=== PATIENT | male | born 1950 | race Caucasian/White ===

== ENCOUNTER 2018-09-09 19:17 | Emergency (ER) | payer MEDICARE, MEDICAID ==
[2018-09-09] MEDS ORDERED: Morphine 4 MG/ML Syringe IVPUSH PRN (19:34)
[2018-09-09] MEDS ORDERED: Nitroglycerin 0.4 MG Tab.SL SL PRN (19:34)
[2018-09-09] MEDS ORDERED: Sodium Chloride 0.9% 10 ML Syringe FLUSH PRN (19:34)
[2018-09-09] MEDS ORDERED: Aspirin 81 MG Tab.Chew PO ONE (19:34)
--- NOTE | 2018-09-09 19:38 | EDM.PDOC ---
ED HPI GENERAL MEDICAL PROBLEM - General Stated Complaint: CHEST PAIN Time Seen by Provider: 09/09/18 19:22 Source of Information: Reports: Patient, Family, Old Records, RN Notes Reviewed History Limitations: Reports: No Limitations - History of Present Illness INITIAL COMMENTS - FREE TEXT/NARRATIVE: 68-year-old gentleman presents to emergency department today complaint of chest pain, he states it started this morning but has progressively gotten worse throughout the day rates the pain 5 out of 10 however it does get worse when he exerts himself then he gets relief with rest. Denies shortness of breath has had nausea and vomiting and gets sweaty palms with exacerbation of pain, history of CABG 2 vessel Chest Pain Score (Numeric/FACES): 2 - Related Data Allergies Allergy/AdvReac Type Severity Reaction Status Date / Time [id number]-Gte Reductase Allergy Cannot Verified 09/09/18 19:37 Inhibitor Remember Home Meds: Home Meds Clopidogrel [Plavix] 75 mg PO DAILY 05/10/15 [History] Levothyroxine [Synthroid] 50 mcg PO ACBREAKFAST 09/08/15 [History] Nicotine [Habitrol] 21 mg TRDERM DAILY #30 patch 09/22/15 [Rx] Tamsulosin [Flomax] 0.4 mg PO PCBREAKFAST #30 cap.er 09/22/15 [Rx] *Semaglutide 0.5 mg SQ WEEKLY 09/09/18 [History] Furosemide 40 mg PO DAILY 09/09/18 [History] Gabapentin [Neurontin] 300 mg PO BID 09/09/18 [History] Lisinopril 5 mg PO DAILY 09/09/18 [History] Melatonin 9 mg PO BEDTIME 09/09/18 [History] Metoprolol Succinate [Toprol XL 50mg] 50 mg PO DAILY 09/09/18 [History] Nicotine Polacrilex [Nicotine Gum] 2 mg PO ASDIRECTED 09/09/18 [History] traZODone HCl [Trazodone HCl] 50 mg PO BEDTIME 09/09/18 [History] Past Medical History HEENT History: Reports: Allergic Rhinitis, Sinusitis, Other (See Below) Other HEENT History: l nasal airway mass. Cardiovascular History: Reports: Bypass, CAD, High Cholesterol, Hypertension, SOB on Exertion Respiratory History: Reports: COPD, Pneumonia, Recurrent, SOB Other Respiratory History: Pneumonia Gastrointestinal History: Reports: Cholelithiasis, Diverticulosis, GERD Musculoskeletal History: Reports: Back Pain, Chronic, Other (See Below) Other Musculoskeletal History: Back pain/Injury Psychiatric History: Reports: Addiction, Depression, Other (See Below) Other Psychiatric History: RECOVERING ALCOHOLIC Endocrine/Metabolic History: Reports: Hyperthyroidism Hematologic History: Reports: Anemia, Folic Acid, Iron Deficiency Dermatologic History: Reports: Other (See Below) Other Dermatologic History: precancerous areas on skin - Infectious Disease History Infectious Disease History: Reports: Chicken Pox - Past Surgical History Cardiovascular Surgical History: Reports: Coronary Artery Bypass GI Surgical History: Reports: Colonoscopy, Other (See Below) Social & Family History - Family History Family Medical History: Unobtainable Endocrine/Metabolic: Reports: Diabetes, type II - Living Situation & Occupation Living situation: Reports: Occupation: Disabled ED ROS GENERAL - Review of Systems Review Of Systems: See Below Constitutional: Reports: Diaphoresis HEENT: Reports: No Symptoms Respiratory: Reports: Shortness of Breath. Denies: Cough, Sputum Cardiovascular: Reports: Chest Pain, Dyspnea on Exertion. Denies: Edema GI/Abdominal: Reports: Nausea, Vomiting : Reports: No Symptoms Musculoskeletal: Reports: No Symptoms Skin: Reports: No Symptoms Neurological: Reports: No Symptoms ED EXAM, GENERAL - Physical Exam Exam: See Below Exam Limited By: No Limitations General Appearance: Alert, WD/WN, No Apparent Distress Head: Atraumatic, Normocephalic Neck: Normal Inspection, Supple, Non-Tender, Full Range of Motion Respiratory/Chest: No Respiratory Distress, Lungs Clear, Normal Breath Sounds, No Accessory Muscle Use, Other (Chest is tender to palpation over the left breast) Cardiovascular: Regular Rate, Rhythm, No Murmur GI/Abdominal: Soft, Non-Tender Extremities: Normal Inspection, No Pedal Edema. No: Pedal Edema Course - Vital Signs Last Recorded V/S: Last Vital Signs Temp 97.3 F 09/09/18 19:58 Pulse 61 09/09/18 21:30 Resp 20 09/09/18 21:30 BP 118/60 09/09/18 21:30 Pulse Ox 92 L 09/09/18 21:30 - Orders/Labs/Meds Orders: Active Orders 24 hr Category Date Time Status Cardiac Monitoring [RC] .As Directed Care 09/09/18 19:35 Active EKG Documentation Completion [RC] ASDIRECTED Care 09/09/18 19:35 Active Peripheral IV Care [RC] . DIRECTED Care 09/09/18 19:35 Active Morphine Med 09/09/18 19:34 Active 4 mg IVPUSH Q10M PRN Nitroglycerin [Nitrostat] Med 09/09/18 19:34 Active 0.4 mg SL Q5M PRN Sodium Chloride 0.9% [Saline Flush] Med 09/09/18 19:34 Active 10 ml FLUSH ASDIRECTED PRN Peripheral IV Insertion Adult [OM.PC] Stat Oth 09/09/18 19:34 Ordered Saline Lock Insert [OM.PC] Stat Oth 09/09/18 19:34 Ordered EKG 12 Lead [EK] Stat Ther 09/09/18 19:35 Ordered Medication Orders Morphine Sulfate (Morphine) 4 mg IVPUSH Q10M PRN PRN Reason: Chest Pain Stop: 09/10/18 19:35 Last Admin: 09/09/18 19:43 Dose: 4 mg Nitroglycerin (Nitrostat) 0.4 mg SL Q5M PRN PRN Reason: Chest Pain Stop: 09/10/18 19:35 Sodium Chloride (Saline Flush) 10 ml FLUSH ASDIRECTED PRN PRN Reason: Keep Vein Open Last Admin: 09/09/18 19:46 Dose: 10 ml Labs: Laboratory Tests 09/09/18 09/09/18 09/09/18 Range/Units 19:47 19:47 21:30 WBC 7.1 (4.5-11.0) K/uL RBC 4.70 (4.30-5.90) M/uL Hgb 13.0 D (12.0-15.0) g/dL Hct 41.3 (40.0-54.0) % MCV 88 (80-98) fL MCH 28 (27-31) pg MCHC 32 (32-36) % Plt Count 216 (150-400) K/uL Neut % (Auto) 67 H (36-66) % Lymph % (Auto) 18 L (24-44) % [place] % (Auto) 12 H (2-6) % Eos % (Auto) 3 (2-4) % Baso % (Auto) 0 (0-1) % Sodium 138 L (140-148) mmol/L Potassium 4.7 (3.6-5.2) mmol/L Chloride 102 (100-108) mmol/L Carbon Dioxide 31 (21-32) mmol/L Anion Gap 9.7 (5.0-14.0) mmol/L BUN 38 H D (7-18) mg/dL Creatinine 2.0 H D (0.8-1.3) mg/dL Est Cr Clr Drug Dosing 33.97 mL/min Estimated GFR (MDRD) 34 L (>60) Glucose 163 H (74-106) mg/dL Calcium 9.0 (8.5-10.1) mg/dL Total Bilirubin 0.3 D (0.2-1.0) mg/dL AST 13 L (15-37) U/L ALT 30 D (12-78) U/L Alkaline Phosphatase 77 (46-116) U/L Troponin I < 0.017 < 0.017 (0.000-0.056) ng/mL Total Protein 7.6 (6.4-8.2) g/dL Albumin 4.0 (3.4-5.0) g/dL Globulin 3.6 H (2.3-3.5) g/dL Albumin/Globulin Ratio 1.1 L (1.2-2.2) Meds: Medications Generic Name Dose Route Start Last Admin Trade Name Freq PRN Reason Stop Dose Admin Morphine Sulfate 4 mg 09/09/18 19:34 09/09/18 19:43 Morphine IVPUSH 09/10/18 19:35 4 mg Q10M PRN Administration Chest Pain Nitroglycerin 0.4 mg 09/09/18 19:34 Nitrostat SL 09/10/18 19:35 Q5M PRN Chest Pain Sodium Chloride 10 ml 09/09/18 19:34 09/09/18 19:46 Saline Flush FLUSH 10 ml ASDIRECTED PRN Administration Keep Vein Open Discontinued Medications Generic Name Dose Route Start Last Admin Trade Name Freq PRN Reason Stop Dose Admin Aspirin 324 mg 09/09/18 19:34 09/09/18 19:43 Aspirin PO 09/09/18 19:35 324 mg ONETIME ONE Administration Departure - Departure Time of Disposition: 22:33 Disposition: Home, Self-Care 01 Condition: Fair Clinical Impression: Chest wall pain Instructions: Chest Wall Pain, [id number] Referrals: Vijay Sunshine MD [Primary Care Provider] - Additional Instructions: Resume your regular medications Please followup with your primary care provider in 3-5 days if not better, please call return to the emergency department with worsening of symptoms., - My Orders Last 24 Hours: My Active Orders 09/09/18 19:34 Morphine 4 mg IVPUSH Q10M PRN Nitroglycerin [Nitrostat] 0.4 mg SL Q5M PRN Sodium Chloride 0.9% [Saline Flush] 10 ml FLUSH ASDIRECTED PRN Peripheral IV Insertion Adult [OM.PC] Stat Saline Lock Insert [OM.PC] Stat 09/09/18 19:35 Cardiac Monitoring [RC] .As Directed EKG Documentation Completion [RC] ASDIRECTED Peripheral IV Care [RC] . DIRECTED EKG 12 Lead [EK] Stat - Assessment/Plan Last 24 Hours: My Active Orders 09/09/18 19:34 Morphine 4 mg IVPUSH Q10M PRN Nitroglycerin [Nitrostat] 0.4 mg SL Q5M PRN Sodium Chloride 0.9% [Saline Flush] 10 ml FLUSH ASDIRECTED PRN Peripheral IV Insertion Adult [OM.PC] Stat Saline Lock Insert [OM.PC] Stat 09/09/18 19:35 Cardiac Monitoring [RC] .As Directed EKG Documentation Completion [RC] ASDIRECTED Peripheral IV Care [RC] . DIRECTED EKG 12 Lead [EK] Stat Plan: Assessment Acuity = acute Site and laterality = chest wall pain, kidney gentleman with known history coronary artery disease Etiology = unclear etiology Manifestations = none Location of injury = Home Lab values = CBC unremarkable, creatinine elevated 2. his chronic renal failure state G IIIB initial troponin is negative, EKG does demonstrate a right bundle branch block partial with Q waves in leads 3 , chest x-ray shows no acute process. Second troponin was also negative Plan , He remained pain-free in the ED plan is discharge home follow-up primary care 3-5 days if not better This note was dictated using [employer] voice recognition software please call with any questions on syntax or grammar.
--- NOTE | 2018-09-09 20:34 | CRLCR ---
INDICATION: chest pain TECHNIQUE: Chest 1 view. COMPARISON: None. FINDINGS: Cardiovascular and mediastinum: Heart size and vasculature are normal in caliber and appearance. Mediastinum is within normal limits. Lungs and pleural space: Lungs are clear. No sign of infiltrate or mass. No sign of pleural effusion. No pneumothorax. Bones and soft tissues: No significant findings. IMPRESSION: Unremarkable chest. Dictated by: Stefano Longoria MD @ 09/09/2018 20:31:49 (Electronically Signed)
[2018-09-09 21:58] VITALS: BP 118/60
== END 2018-09-09 22:50 | disposition home or self-care (01) ==
LOC: JP.ED 19:17
DX: R07.89 Other chest pain (principal); I25.10 Atherosclerotic heart disease of native coronary artery without angina pectoris; I10 Essential (primary) hypertension; E78.00 Pure hypercholesterolemia, unspecified; J44.9 Chronic obstructive pulmonary disease, unspecified; E05.90 Thyrotoxicosis, unspecified without thyrotoxic crisis or storm; Z79.899 Other long term (current) drug therapy; Z88.8 Allergy status to other drugs, medicaments and biological substances
CPT/HCPCS: 36415; 71045; 80053; 84484; 85025; 93005; 93010; 96374; 99285; A9270; J2270

== ENCOUNTER 2019-01-08 11:00 | Emergency (ER) | payer MEDICARE, MEDICAID ==
[2019-01-08] MEDS ORDERED: Aspirin 81 MG Tab.Chew PO ONE (11:59)
[2019-01-08] MEDS ORDERED: Ketorolac 60 MG/2 ML SDV IM ONE (12:00)
--- NOTE | 2019-01-08 12:03 | EDM.PDOC ---
ED HPI GENERAL MEDICAL PROBLEM - General Chief Complaint: Chest Pain Stated Complaint: CHEST AND SIDE PAIN, SOB Time Seen by Provider: 01/08/19 11:54 Source of Information: Reports: Patient, Family, RN Notes Reviewed History Limitations: Reports: No Limitations - History of Present Illness INITIAL COMMENTS - FREE TEXT/NARRATIVE: 68-year-old gentleman presents to the emergency department today complaint of chest pain, he states the pain started last night but he was able to get to sleep he woke this morning this pain was still present rates at 3 out of 10. It is tender when he touches over the left side of his chest. He does have a known history of coronary artery disease with bypass as well as diabetes Anterior Chest Pain Score (Numeric/FACES): 3 - Related Data Allergies Allergy/AdvReac Type Severity Reaction Status Date / Time [id number] Reductase Allergy Cannot Verified 01/08/19 11:29 Inhibitor Remember Home Meds: Home Meds Clopidogrel [Plavix] 75 mg PO DAILY 05/10/15 [History] Levothyroxine [Synthroid] 50 mcg PO ACBREAKFAST 09/08/15 [History] Tamsulosin [Flomax] 0.4 mg PO PCBREAKFAST #30 cap.er 09/22/15 [Rx] *Semaglutide 0.5 mg SQ WEEKLY 09/09/18 [History] Furosemide 40 mg PO DAILY 09/09/18 [History] Gabapentin [Neurontin] 300 mg PO BID 09/09/18 [History] Lisinopril 5 mg PO DAILY 09/09/18 [History] Metoprolol Succinate [Toprol XL 50mg] 50 mg PO DAILY 09/09/18 [History] Nicotine Polacrilex [Nicotine Gum] 2 mg PO ASDIRECTED 09/09/18 [History] traZODone HCl [Trazodone HCl] 50 mg PO BEDTIME 09/09/18 [History] Past Medical History HEENT History: Reports: Allergic Rhinitis, Sinusitis, Other (See Below) Other HEENT History: l nasal airway mass. Cardiovascular History: Reports: Bypass, CAD, High Cholesterol, Hypertension, SOB on Exertion Respiratory History: Reports: COPD, Pneumonia, Recurrent, SOB Other Respiratory History: Pneumonia Gastrointestinal History: Reports: Cholelithiasis, Diverticulosis, GERD Musculoskeletal History: Reports: Back Pain, Chronic, Other (See Below) Other Musculoskeletal History: Back pain/Injury Psychiatric History: Reports: Addiction, Depression, Other (See Below) Other Psychiatric History: RECOVERING ALCOHOLIC Endocrine/Metabolic History: Reports: Hyperthyroidism Hematologic History: Reports: Anemia, Folic Acid, Iron Deficiency Dermatologic History: Reports: Other (See Below) Other Dermatologic History: precancerous areas on skin - Infectious Disease History Infectious Disease History: Reports: Chicken Pox - Past Surgical History Cardiovascular Surgical History: Reports: Coronary Artery Bypass GI Surgical History: Reports: Colonoscopy, Other (See Below) Social & Family History - Family History Family Medical History: Unobtainable Endocrine/Metabolic: Reports: Diabetes, type II - Tobacco Use Smoking Status *Q: Former Smoker Years of Tobacco use: 50 Packs/Tins Daily: 1.5 Used Tobacco, but Quit: Yes Month/Year Tobacco Last Used: October 2017 Second Hand Smoke Exposure: No - Caffeine Use Caffeine Use: Reports: Coffee, Soda - Recreational Drug Use Recreational Drug Use: No - Living Situation & Occupation Living situation: Reports: Occupation: Disabled ED ROS GENERAL - Review of Systems Review Of Systems: See Below Constitutional: Reports: No Symptoms. Denies: Diaphoresis HEENT: Reports: No Symptoms Respiratory: Reports: No Symptoms Cardiovascular: Reports: Chest Pain GI/Abdominal: Reports: Nausea, Vomiting : Reports: No Symptoms Musculoskeletal: Reports: No Symptoms ED EXAM, GENERAL - Physical Exam Exam: See Below Exam Limited By: No Limitations General Appearance: Alert, WD/WN, No Apparent Distress Neck: Normal Inspection, Supple, Non-Tender, Full Range of Motion Respiratory/Chest: No Respiratory Distress, Lungs Clear, Normal Breath Sounds, No Accessory Muscle Use, Other (Tenderness to palpation over the left breast) Cardiovascular: Normal Peripheral Pulses, Regular Rate, Rhythm, No Murmur GI/Abdominal: Soft, Non-Tender Extremities: Normal Inspection, Non-Tender, No Pedal Edema Course - Vital Signs Last Recorded V/S: Last Vital Signs Temp 99.1 F 01/08/19 14:00 Pulse 74 01/08/19 14:00 Resp 16 01/08/19 14:00 BP 109/67 01/08/19 14:00 Pulse Ox 94 L 01/08/19 14:00 - Orders/Labs/Meds Orders: Active Orders 24 hr Category Date Time Status Cardiac Monitoring [RC] .As Directed Care 01/08/19 11:59 Active EKG Documentation Completion [RC] ASDIRECTED Care 01/08/19 12:00 Active EKG 12 Lead [EK] Stat Ther 01/08/19 11:59 Ordered Labs: Laboratory Tests 01/08/19 01/08/19 01/08/19 Range/Units 12:11 12:11 13:58 WBC 6.0 (4.5-11.0) K/uL RBC 4.94 (4.30-5.90) M/uL Hgb 13.6 (12.0-15.0) g/dL Hct 43.4 (40.0-54.0) % MCV 88 (80-98) fL MCH 28 (27-31) pg MCHC 31 L (32-36) % Plt Count 213 (150-400) K/uL Neut % (Auto) 74 H (36-66) % Lymph % (Auto) 14 L (24-44) % [place] % (Auto) 10 H (2-6) % Eos % (Auto) 2 (2-4) % Baso % (Auto) 0 (0-1) % Sodium 139 L (140-148) mmol/L Potassium 4.7 (3.6-5.2) mmol/L Chloride 100 (100-108) mmol/L Carbon Dioxide 30 (21-32) mmol/L Anion Gap 13.7 (5.0-14.0) mmol/L BUN 28 H (7-18) mg/dL Creatinine 1.6 H (0.8-1.3) mg/dL Est Cr Clr Drug Dosing 42.46 mL/min Estimated GFR (MDRD) 43 L (>60) Glucose 140 H (74-106) mg/dL Calcium 9.0 (8.5-10.1) mg/dL Total Bilirubin 0.3 (0.2-1.0) mg/dL AST 13 L (15-37) U/L ALT 22 (12-78) U/L Alkaline Phosphatase 73 (46-116) U/L Troponin I < 0.017 < 0.017 (0.000-0.056) ng/mL Total Protein 7.8 (6.4-8.2) g/dL Albumin 4.2 (3.4-5.0) g/dL Globulin 3.6 H (2.3-3.5) g/dL Albumin/Globulin Ratio 1.2 (1.2-2.2) Meds: Medications Discontinued Medications Generic Name Dose Route Start Last Admin Trade Name Joanna PRN Reason Stop Dose Admin Aspirin 324 mg 01/08/19 11:59 01/08/19 12:03 Aspirin PO 01/08/19 12:00 324 mg ONETIME ONE Administration Ketorolac Tromethamine 60 mg 01/08/19 12:00 01/08/19 12:07 Toradol IM 01/08/19 12:01 60 mg ONETIME ONE Administration - Re-Assessments/Exams Free Text/Narrative Re-Assessment/Exam: 01/08/19 13:07 Heart score is 5 moderate risk ED ACS score is 12 low risk Departure - Departure Time of Disposition: 14:48 Disposition: Home, Self-Care 01 Condition: Fair Clinical Impression: Atypical chest pain Referrals: PCP,None [Primary Care Provider] - Forms: ED Department Discharge Additional Instructions: Resume your regular medications, Please followup with your primary care provider in 3-5 days if not better, please call return to the emergency department with worsening of symptoms. - My Orders Last 24 Hours: My Active Orders 01/08/19 11:59 Cardiac Monitoring [RC] .As Directed EKG 12 Lead [EK] Stat 01/08/19 12:00 EKG Documentation Completion [RC] ASDIRECTED - Assessment/Plan Last 24 Hours: My Active Orders 01/08/19 11:59 Cardiac Monitoring [RC] .As Directed EKG 12 Lead [EK] Stat 01/08/19 12:00 EKG Documentation Completion [RC] ASDIRECTED Plan: Assessment Acuity = acute Site and laterality = atypical chest pain Etiology = unclear etiology suspicious for underlying muscle skilled cause Manifestations = none Location of injury = Home Lab values = CBC unremarkable creatinine elevated 1.6 consistent chronic renal failure stage G IIIB troponin negative 2, EKG demonstrates a sinus rhythm, chest x-ray shows no acute process Plan Discharge home follow-up primary care 3-5 days for reevaluation This note was dictated using [employer] voice recognition software please call with any questions on syntax or grammar.
--- NOTE | 2019-01-08 12:53 | CRLCR ---
INDICATION: Chest pain TECHNIQUE: Chest 1 view. COMPARISON: 09/09/2018 FINDINGS: Cardiovascular and mediastinum: Heart size and vasculature are normal in caliber and appearance. Mediastinum is within normal limits. Sternotomy wires noted. Lungs and pleural space: Lungs are clear. No sign of infiltrate or mass. No sign of pleural effusion. No pneumothorax. Bones and soft tissues: No significant findings. IMPRESSION: Unremarkable chest. Dictated by Stefano Longoria MD @ 01/08/2019 12:52:56 PM Dictated by: Stefano Longoria MD @ 01/08/2019 12:53:01 (Electronically Signed)
[2019-01-08 14:46] VITALS: BP 109/67; PULSE 74
== END 2019-01-08 14:55 | disposition home or self-care (01) ==
LOC: JP.ED 11:00
DX: R07.89 Other chest pain (principal); I10 Essential (primary) hypertension; E78.00 Pure hypercholesterolemia, unspecified; J44.9 Chronic obstructive pulmonary disease, unspecified; K21.9 Gastro-esophageal reflux disease without esophagitis; F32.9 Major depressive disorder, single episode, unspecified; E21.3 Hyperparathyroidism, unspecified; Z87.891 Personal history of nicotine dependence; Z88.8 Allergy status to other drugs, medicaments and biological substances; Z79.899 Other long term (current) drug therapy; Z79.02 Long term (current) use of antithrombotics/antiplatelets
CPT/HCPCS: 36415; 71045; 80053; 84484; 85025; 93005; 96372; 99285; A9270; J1885; 93010; 99284

== ENCOUNTER 2019-09-20 17:14 | Emergency (ER) | payer MEDICARE, MEDICAID ==
[2019-09-20] MEDS ORDERED: Sodium Chloride 0.9% 10 ML Syringe FLUSH PRN (17:23)
[2019-09-20] MEDS ORDERED: Aspirin 81 MG Tab.Chew PO ONE (17:36)
[2019-09-20] MEDS ORDERED: Nitroglycerin 0.4 MG Tab.SL SL ONE (17:36)
[2019-09-20] MEDS ORDERED: Sodium Chloride 0.9% 1,000 ML IV SCH (17:45)
--- NOTE | 2019-09-20 17:46 | EDM.PDOC ---
ED HPI GENERAL MEDICAL PROBLEM - General Chief Complaint: Chest Pain Stated Complaint: CHEST PAIN Time Seen by Provider: 09/20/19 17:22 Source of Information: Reports: Patient, RN Notes Reviewed History Limitations: Reports: No Limitations - History of Present Illness INITIAL COMMENTS - FREE TEXT/NARRATIVE: Flakito presents to the emergency room today with complaints of chest pain that feels like squeezing pressure to left mid-sternal area that happened this morning and went away and at 1230 and has stayed. He denies radiation of the pain. He denies taking anything to help the pain. 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 skilled nursing completed COVID19 testing on 09/15/2018, Flakito had a negative test. Chest Pain Score (Numeric/FACES): 4 - Related Data Allergies Allergy/AdvReac Type Severity Reaction Status Date / Time [id number] Reductase Allergy Cannot Verified 01/08/19 11:29 Inhibitor Remember Home Meds: Home Meds Clopidogrel [Plavix] 75 mg PO DAILY 05/10/15 [History] Levothyroxine [Synthroid] 50 mcg PO ACBREAKFAST 09/08/15 [History] Tamsulosin [Flomax] 0.4 mg PO PCBREAKFAST #30 cap.er 09/22/15 [Rx] *Semaglutide 0.5 mg SQ WEEKLY 09/09/18 [History] Furosemide 40 mg PO DAILY 09/09/18 [History] Gabapentin [Neurontin] 300 mg PO BID 09/09/18 [History] Lisinopril 5 mg PO DAILY 09/09/18 [History] Metoprolol Succinate [Toprol XL 50mg] 50 mg PO DAILY 09/09/18 [History] Nicotine Polacrilex [Nicotine Gum] 2 mg PO ASDIRECTED 09/09/18 [History] traZODone HCl [Trazodone HCl] 50 mg PO BEDTIME 09/09/18 [History] Melatonin 9 mg PO BEDTIME 09/20/19 [History] Past Medical History HEENT History: Reports: Allergic Rhinitis, Sinusitis, Other (See Below) Other HEENT History: l nasal airway mass. Cardiovascular History: Reports: Bypass, CAD, High Cholesterol, Hypertension, SOB on Exertion Respiratory History: Reports: COPD, Pneumonia, Recurrent, SOB, Other (See Below ) (PRN oxygen for SOB) Other Respiratory History: Pneumonia Gastrointestinal History: Reports: Cholelithiasis, Diverticulosis, GERD Musculoskeletal History: Reports: Back Pain, Chronic, Other (See Below) Other Musculoskeletal History: Back pain/Injury Psychiatric History: Reports: Addiction, Depression, Other (See Below) Other Psychiatric History: RECOVERING ALCOHOLIC Endocrine/Metabolic History: Reports: Hyperthyroidism Hematologic History: Reports: Anemia, Folic Acid, Iron Deficiency Dermatologic History: Reports: Other (See Below) Other Dermatologic History: precancerous areas on skin - Infectious Disease History Infectious Disease History: Reports: Chicken Pox - Past Surgical History Cardiovascular Surgical History: Reports: Coronary Artery Bypass GI Surgical History: Reports: Colonoscopy, Other (See Below) Social & Family History - Family History Family Medical History: Unobtainable Endocrine/Metabolic: Reports: Diabetes, type II - Tobacco Use Smoking Status *Q: Never Smoker - Caffeine Use Caffeine Use: Reports: Coffee, Soda - Recreational Drug Use Recreational Drug Use: No - Living Situation & Occupation Living situation: Reports: Occupation: Disabled ED ROS GENERAL - Review of Systems Review Of Systems: See Below Constitutional: Reports: No Symptoms HEENT: Reports: No Symptoms Respiratory: Reports: Shortness of Breath, Other (with chest pain) Cardiovascular: Reports: Chest Pain, Other (squeezing type chest pain) Endocrine: Reports: No Symptoms GI/Abdominal: Reports: No Symptoms : Reports: No Symptoms Musculoskeletal: Reports: No Symptoms Skin: Reports: No Symptoms Neurological: Reports: Other (memory loss-historically, able to answer questions appropriately) Psychiatric: Reports: No Symptoms Hematologic/Lymphatic: Reports: No Symptoms Immunologic: Reports: No Symptoms ED EXAM, GENERAL - Physical Exam Exam: See Below Exam Limited By: Other (history of 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 No: Lymphadenopathy (R), Lymphadenopathy (L) Respiratory/Chest: No Respiratory Distress, Chest Non-Tender, Decreased Breath Sounds. No: Crackles, Rales, Rhonchi, Wheezing, Stridor, Retractions, Splinting Cardiovascular: Normal Peripheral Pulses, Regular Rate, Rhythm, No Edema, No Gallop, No Rub Peripheral Pulses: 2+: Radial (L), Radial (R) GI/Abdominal: Normal Bowel Sounds, Soft, Non-Tender, No Organomegaly, No Distention, No Mass, Other (large abdomen). No: Guarding, Rigid, Rebound, Tender Back Exam: Normal Inspection, Full Range of Motion. No: CVA Tenderness (R), CVA Tenderness (L) Extremities: Normal Inspection, Normal Range of Motion, Non-Tender, No Pedal Edema, Normal Capillary Refill Neurological: Alert, No Motor/Sensory Deficits, Memory Loss Remote Events, Memory Loss Recent Events, Other (memory loss normal per his most recent baseline) Psychiatric: Normal Affect, Normal Mood Skin Exam: Warm, Dry, Intact, Normal Color, No Rash Lymphatic: No Adenopathy EKG INTERPRETATION EKG Date: 09/20/19 Time: 17:17 Rhythm: NSR Rate (Beats/Min): 69 Snover: Normal P-Wave: Present QRS: Normal ST-T: Other (flipped Ts to AVL, V2, V1) EKG Interpretation Comments: EKG changes when compared to EKG completed 01/08/2019 with flipped Ts to avl, V2 , V1 Course - Vital Signs Last Recorded V/S: Last Vital Signs Temp 36.1 C 09/20/19 17:20 Pulse 54 L 09/20/19 22:53 Resp 16 09/20/19 22:53 BP 132/67 09/20/19 22:53 Pulse Ox 98 09/20/19 22:53 - Orders/Labs/Meds Orders: Active Orders 24 hr Category Date Time Status EKG Documentation Completion [RC] ASDIRECTED Care 09/20/19 17:23 Active Heparin Sodium/D5W [Heparin 25,000 Units in D5W 500 ML] Med 09/20/19 19:45 Active 25,000 units in 500 ml IV TITRATE Sodium Chloride 0.9% [Normal Saline] 1,000 ml Med 09/20/19 17:45 Active IV ASDIRECTED Sodium Chloride 0.9% [Saline Flush] Med 09/20/19 17:23 Active 10 ml FLUSH ASDIRECTED PRN Saline Lock Insert [OM.PC] Routine Oth 09/20/19 17:23 Ordered EKG 12 Lead [EK] Routine Ther 09/20/19 17:22 Ordered Medication Orders Sodium Chloride (Normal Saline) 1,000 mls @ 0 mls/hr IV ASDIRECTED MEHRDAD Last Admin: 09/20/19 17:44 Dose: 25 mls/hr Heparin Sodium/Dextrose (Heparin 25,000 Units In D5w 500 Ml) 25,000 units in 500 mls @ 27.84 mls/hr IV TITRATE MEHRDAD; Protocol Last Admin: 09/20/19 19:34 Dose: 12 units/kg/hr, 27.84 mls/hr Sodium Chloride (Saline Flush) 10 ml FLUSH ASDIRECTED PRN PRN Reason: Keep Vein Open Last Admin: 09/20/19 17:43 Dose: 10 ml Labs: Laboratory Tests 09/20/19 09/20/19 09/20/19 Range/Units 17:40 17:40 17:40 WBC 6.2 (4.5-11.0) K/uL RBC 4.77 (4.30-5.90) M/uL Hgb 13.4 (12.0-15.0) g/dL Hct 42.5 (40.0-54.0) % MCV 89 (80-98) fL MCH 28 (27-31) pg MCHC 32 (32-36) % Plt Count 199 (150-400) K/uL Neut % (Auto) 69 H (36-66) % Lymph % (Auto) 18 L (24-44) % Holmes % (Auto) 10 H (2-6) % Eos % (Auto) 2 (2-4) % Baso % (Auto) 0 (0-1) % PT 10.3 (9.5-12.0) sec INR 0.95 (0.80-1.20) APTT 25.2 L (27.0-36.0) sec D-Dimer, Quantitative (0.0-400.0) ng/mL Sodium 142 (140-148) mmol/L Potassium 4.4 (3.6-5.2) mmol/L Chloride 102 (100-108) mmol/L Carbon Dioxide 29 (21-32) mmol/L Anion Gap 11.5 (5.0-14.0) mmol/L BUN 26 H (7-18) mg/dL Creatinine 1.6 H (0.8-1.3) mg/dL Est Cr Clr Drug Dosing 41.89 mL/min Estimated GFR (MDRD) 43 L (>60) Glucose 196 H (74-106) mg/dL Calcium 8.1 L (8.5-10.1) mg/dL Troponin I < 0.017 (0.000-0.056) ng/mL NT-Pro-B Natriuret Pep (5-125) pg/mL 09/20/19 09/20/19 Range/Units 17:40 19:08 WBC (4.5-11.0) K/uL RBC (4.30-5.90) M/uL Hgb (12.0-15.0) g/dL Hct (40.0-54.0) % MCV (80-98) fL MCH (27-31) pg MCHC (32-36) % Plt Count (150-400) K/uL Neut % (Auto) (36-66) % Lymph % (Auto) (24-44) % Holmes % (Auto) (2-6) % Eos % (Auto) (2-4) % Baso % (Auto) (0-1) % PT (9.5-12.0) sec INR (0.80-1.20) APTT (27.0-36.0) sec D-Dimer, Quantitative 755 H (0.0-400.0) ng/mL Sodium (140-148) mmol/L Potassium (3.6-5.2) mmol/L Chloride (100-108) mmol/L Carbon Dioxide (21-32) mmol/L Anion Gap (5.0-14.0) mmol/L BUN (7-18) mg/dL Creatinine (0.8-1.3) mg/dL Est Cr Clr Drug Dosing mL/min Estimated GFR (MDRD) (>60) Glucose (74-106) mg/dL Calcium (8.5-10.1) mg/dL Troponin I < 0.017 (0.000-0.056) ng/mL NT-Pro-B Natriuret Pep 688 H (5-125) pg/mL Patient lab work reviewed with him and his daughter. Call placed to [facility] to discuss with appraiser personal property. Meds: Medications Generic Name Dose Route Start Last Admin Trade Name Freq PRN Reason Stop Dose Admin Sodium Chloride 1,000 mls @ 0 mls/hr 09/20/19 17:45 09/20/19 17:44 Normal Saline IV 25 mls/hr ASDIRECTED MEHRDAD Administration KVO Heparin Sodium/Dextrose 25,000 units in 500 mls @ 27.84 mls/hr 09/20/19 19:45 09/20/19 19:34 Heparin 25,000 Units In D5w 500 Ml IV 12 units/kg/hr TITRATE MEHRDAD 27.84 mls/hr Administration Protocol 12 UNITS/KG/HR Sodium Chloride 10 ml 09/20/19 17:23 09/20/19 17:43 Saline Flush FLUSH 10 ml ASDIRECTED PRN Administration Keep Vein Open Discontinued Medications Generic Name Dose Route Start Last Admin Trade Name Freq PRN Reason Stop Dose Admin Aspirin 324 mg 09/20/19 17:36 09/20/19 17:40 Aspirin PO 09/20/19 17:37 324 mg ONETIME ONE Administration Heparin Sodium (Porcine) 4,000 units 09/20/19 19:21 09/20/19 19:30 Heparin Sodium IVPUSH 09/20/19 19:22 4,000 units ONETIME ONE Administration Sodium Chloride 500 mls @ 999 mls/hr 09/20/19 20:41 09/20/19 20:53 Normal Saline IV 09/20/19 21:11 999 mls/hr .BOLUS ONE Administration Nitroglycerin 0.4 mg 09/20/19 17:36 09/20/19 17:41 Nitrostat SL 09/20/19 17:37 0.4 mg ONETIME ONE Administration 500ml saline bolus per Dr. Sylvester. - Radiology Interpretation Free Text/Narrative:: Chest x-ray wet read, reviewed, shows bilateral lower pleural effusion. - Re-Assessments/Exams Free Text/Narrative Re-Assessment/Exam: 09/20/19 17:58 Chest pain relieved some by 1 nitro SL 09/20/19 19:[address] Sylvester He advises to complete BNP, second troponin Start heparin drip, no contraindications at this time. 09/20/19 20:19 Patient resting, denies complaints. NPO Lab work pending. 09/20/19 20:32 Dr. Sylvester accepts patient for transfer, patient will go to 3rd floor. 09/20/19 21:17 P[address] placement. Patient denies complaints, vital signs stable. 09/20/19 22:56 EMS present to transport patient. Departure - Departure Time of Disposition: 22:56 Disposition: DC/Tfer to [facility] 02 Reason for Transfer *Q: Other (Chest pain, possible PE, CKD, EKG changes, CHF) Condition: Fair Clinical Impression: Chest pain, CHF (congestive heart failure), CKD (chronic kidney disease) Referrals: PCP,None [Primary Care Provider] - Forms: ED Department Discharge Additional Instructions: Patient transfer per EMS to [facility] for further care. Sepsis Event Note - Evaluation Sepsis Screening Result: No Definite Risk - Focused Exam Vital Signs: Vital Signs Temp Pulse Resp BP BP Pulse Ox 09/20/19 22:53 54 L 16 132/67 98 09/20/19 22:04 57 L 27 H 140/76 98 09/20/19 21:29 60 14 150/78 H 96 09/20/19 21:04 61 23 H 132/83 100 09/20/19 20:42 60 20 146/78 H 99 09/20/19 20:01 61 22 H 146/62 H 98 09/20/19 19:27 65 15 139/67 97 09/20/19 18:16 70 23 H 126/62 96 09/20/19 17:52 71 25 H 144/68 H 96 09/20/19 17:41 144/78 H 09/20/19 17:20 36.1 C 69 14 178/64 H 96 Date Exam was Performed: 09/20/19 Time Exam was Performed: 22:56 - My Orders Last 24 Hours: My Active Orders 09/20/19 17:22 EKG 12 Lead [EK] Routine 09/20/19 17:23 EKG Documentation Completion [RC] ASDIRECTED Sodium Chloride 0.9% [Saline Flush] 10 ml FLUSH ASDIRECTED PRN Saline Lock Insert [OM.PC] Routine 09/20/19 17:45 Sodium Chloride 0.9% [Normal Saline] 1,000 ml IV ASDIRECTED 09/20/19 19:45 Heparin Sodium/D5W [Heparin 25,000 Units in D5W 500 ML] 25,000 units in 500 ml IV TITRATE - Assessment/Plan Last 24 Hours: My Active Orders 09/20/19 17:22 EKG 12 Lead [EK] Routine 09/20/19 17:23 EKG Documentation Completion [RC] ASDIRECTED Sodium Chloride 0.9% [Saline Flush] 10 ml FLUSH ASDIRECTED PRN Saline Lock Insert [OM.PC] Routine 09/20/19 17:45 Sodium Chloride 0.9% [Normal Saline] 1,000 ml IV ASDIRECTED 09/20/19 19:45 Heparin Sodium/D5W [Heparin 25,000 Units in D5W 500 ML] 25,000 units in 500 ml IV TITRATE Assessment:: chest pain EKG changes Possible PE CHF CKD Plan: Transfer to [facility] for ongoing care/cardiology. Acceptance per Dr. Sylvester ALS transport Heparin drip
--- NOTE | 2019-09-20 18:30 | CRLCR ---
Indication: Chest pain Technique: Chest 1 view Comparison: 01/08/2019 Findings/Impression: Cardiovascular and mediastinum: Stable cardiomediastinal silhouette. Sternotomy sutures again seen. Lungs and pleural space: A medial right basilar opacity which could represent an infiltrate/pneumonia or atelectasis. Mild left basilar atelectasis. Correlate clinically and follow-up. No pleural effusions. No pneumothorax seen. Bones and soft tissues: No significant change. Dictated by Anderson Kaplan MD @ 09/20/2019 6:27:39 PM Dictated by: Anderson Kaplan MD @ 09/20/2019 18:27:47 (Electronically Signed)
[2019-09-20] MEDS ORDERED: Heparin Sodium 5,000 Units/ML Vial IVPUSH ONE (19:21)
[2019-09-20] MEDS ORDERED: Heparin Sodium/D5W 25,000 UNITS/500 ML BAG IV SCH ×3 (19:30→19:45)
[2019-09-20] MEDS ORDERED: Sodium Chloride 0.9% 500 ML IV ONE (20:41)
[2019-09-20 22:54] VITALS: BP 132/67; PULSE 54
== END 2019-09-20 23:10 ==
LOC: JP.ED 17:14
DX: I13.0 Hypertensive heart and chronic kidney disease with heart failure and stage 1 through stage 4 chronic kidney disease, or unspecified chronic kidney disease (principal); I50.9 Heart failure, unspecified; N18.9 Chronic kidney disease, unspecified; I25.10 Atherosclerotic heart disease of native coronary artery without angina pectoris; F32.9 Major depressive disorder, single episode, unspecified; E05.90 Thyrotoxicosis, unspecified without thyrotoxic crisis or storm; J44.9 Chronic obstructive pulmonary disease, unspecified; Z79.02 Long term (current) use of antithrombotics/antiplatelets; Z88.8 Allergy status to other drugs, medicaments and biological substances; Z79.84 Long term (current) use of oral hypoglycemic drugs; Z79.899 Other long term (current) drug therapy
CPT/HCPCS: 36415; 71045; 80048; 83880; 84484; 85025; 85379; 85610; 85730; 93005; 96365; 96366; 96376; 99285; A9270; J1644; J7030; J7040; 93010

== ENCOUNTER 2025-03-13 14:27 | Emergency (ER) | payer MEDICARE, MEDICAID ==
[2025-03-13 14:50] LABS: BASOPHILS ABSOLUTE AUTO 0.03 K/uL (0.00-0.10); BASOPHILS PERCENT AUTO 0.4 % (0.1-1.3); EOSINOPHILS ABSOLUTE AUTO 0.14 K/uL (0.00-0.40); EOSINOPHILS PERCENT AUTO 2.0 % (0.0-5.4); IMMATURE GRAN ABSOLUTE AUTO 0.02 K/uL (0.00-0.23); IMMATURE GRAN PERCENT AUTO 0.3 % (0.0-0.7); LYMPHOCYTES ABSOLUTE AUTO 0.91 K/uL (0.8-3.3); LYMPHOCYTES PERCENT AUTO 13.0 % (11.4-47.7); MONOCYTES ABSOLUTE AUTO 0.56 K/uL (0.20-0.90); MONOCYTES PERCENT AUTO 8.0 % (3.3-12.6); NEUTROPHILS ABSOLUTE AUTO 5.34 K/uL (1.0-7.6); NEUTROPHILS PERCENT AUTO 76.3 % (40.0-78.1); PLATELET COUNT,PLT 168 K/uL (130-375); RED BLOOD CELL COUNT 3.99 M/uL (4.14-5.76); WHITE BLOOD CELL COUNT,WBC 7.0 K/uL (3.2-11.0)
[2025-03-13 14:51] LABS: BASE EXCESS VENOUS 1.0 mm/L; BICARBONATE,VENOUS 27.2 mmol/L; O2 SATURATION VENOUS 33.6; OXYHEMOGLOBIN 32.6 %; PCO2 VENOUS 53.5 mm/Hg; PH,VENOUS 7.328 (7.350-7.450); PO2 VENOUS 25.9 mm/Hg; TOTAL HEMOGLOBIN 12.5 g/dL (13.5-18.0)
[2025-03-13] MEDS: Nitroglycerin 0.4 MG Tab.SL SL PRN (14:55)
[2025-03-13 15:04] LABS: INR 1.0
[2025-03-13 15:10] LABS: TROPONIN I HIGH SENSITIVITY 6.4 pg/mL (<=60.3)
[2025-03-13 15:18] LABS: A/G RATIO 1.0 (1.2-2.2); ALANINE AMINOTRANSFERASE,ALT 20 U/L (12-78); ASPARTATE AMNIOTRANSFERASE,AST 11 U/L (15-37); BILIRUBIN TOTAL 0.4 mg/dL (0.2-1.0); BLOOD UREA NITROGEN,BUN 33 mg/dL (7-18); CARBON DIOXIDE,CO2 29 mmol/L (21-32); CHLORIDE,CL 102 mmol/L (100-108); CREATININE 2.9 mg/dL (0.8-1.3); ESTIMATED GFR 22 mL/min (>60); GLUCOSE RANDOM 175 mg/dL (74-106); POTASSIUM,K 4.4 mmol/L (3.6-5.2); PRO B-TYPE NATRIUR PEPT,BNPPRO 551 pg/mL (5-125); PROTEIN TOTAL,TP 8.1 g/dL (6.4-8.2); SODIUM,NA 141 mmol/L (140-148)
[2025-03-13 17:19] VITALS: BP 125/66; PULSE 75
== END 2025-03-13 17:47 | disposition home or self-care (01) ==
LOC: JP.ED 14:27
DX: J43.9 Emphysema, unspecified (principal); I25.10 Atherosclerotic heart disease of native coronary artery without angina pectoris; I10 Essential (primary) hypertension; J44.9 Chronic obstructive pulmonary disease, unspecified; E78.00 Pure hypercholesterolemia, unspecified; K21.9 Gastro-esophageal reflux disease without esophagitis; Z95.1 Presence of aortocoronary bypass graft; F17.200 Nicotine dependence, unspecified, uncomplicated; Z79.899 Other long term (current) drug therapy; Z79.890 Hormone replacement therapy; Z79.84 Long term (current) use of oral hypoglycemic drugs; Z88.8 Allergy status to other drugs, medicaments and biological substances; Z79.02 Long term (current) use of antithrombotics/antiplatelets
CPT/HCPCS: 36415; 71045; 71250; 80053; 82803; 83605; 83735; 83880; 84484; 85025; 85379; 85610; 86140; 93005; 93010; 99284; 99285; A9270; J7030